=== PATIENT | male | born 1950 | race African-American/Black ===

== ENCOUNTER 2017-06-13 06:31 | Day surgery (SDC) | payer MEDICARE, MEDICAID ==
[~2017-06-13] VITALS: Ht 188 cm; Wt 120.2 kg
[~2017-06-13 06:31] MED LIST: AMLODIPINE10 MG PO; BAYER ASPIRIN E81 MG PO; DIOVAN320 MG PO; FERROUS SULF325 M2 PO; FOLIC ACID1 M1; GABAPENTIN400 M2 PO; GLIPIZIDE ER10 M1 PO; HYDRALAZINE HCL25 MG PO; LIPITOR40 M1 PO; PROTONIX40 M2 PO
[2017-06-13 07:54] VITALS: BP 146/89
== END 2017-06-13 08:23 | disposition home or self-care (01) ==
LOC: ORM 06:31
PROVIDERS: ATTEND Anesthesiology Pain Medicine
PROC: 3E0R33Z Introduction of Anti-inflammatory into Spinal Canal, Percutaneous Approach (ICD-10-PCS; principal; 2017-06-13)
PROC: B01B1ZZ Fluoroscopy of Spinal Cord using Low Osmolar Contrast (ICD-10-PCS; 2017-06-13)
DX: M48.062 Spinal stenosis, lumbar region with neurogenic claudication (principal); M51.36 Other intervertebral disc degeneration, lumbar region; F14.10 Cocaine abuse, uncomplicated
CPT/HCPCS: Q9967

== ENCOUNTER 2017-07-25 07:30 | Day surgery (SDC) | payer MEDICARE, MEDICAID ==
[~2017-07-25] VITALS: Ht 188 cm; Wt 116.6 kg
[2017-07-25 09:40] VITALS: BP 158/88
== END 2017-07-25 10:04 | disposition home or self-care (01) ==
LOC: ORM 07:30
PROVIDERS: ATTEND Anesthesiology Pain Medicine
PROC: 3E0U33Z Introduction of Anti-inflammatory into Joints, Percutaneous Approach (ICD-10-PCS; principal; 2017-07-25)
PROC: 3E0U3BZ Introduction of Anesthetic Agent into Joints, Percutaneous Approach (ICD-10-PCS; 2017-07-25)
DX: M25.561 Pain in right knee (principal)